=== PATIENT | female | born 1960 ===

== ENCOUNTER 2019-04-22 11:53 | Emergency (ER) | payer SELFPAY ==
[2019-04-22] MEDS ORDERED: Lidocaine 2% VISCOUS* 15 ML UDC PO ONE (13:01)
[2019-04-22] MEDS ORDERED: Al Hydrox/Mg Hydrox/Simet LIQ* 30 ML UDC PO ONE (13:02)
--- NOTE | 2019-04-22 13:22 | UC ---
Abdominal Pain Female HPI - HPI Summary HPI Summary: 59 year old female with PMH + for gallstones, H Pylori, dx'd this October, treated with 3 weeks medications. Does not believe she has ever had a BG attack, but not sure- GI dr at home stated it could have been in past. Visiting from [place]. Denies bloody/ tarry stools, coffee ground emesis. Patient states last night started to have stomach pains with several episodes of loose, putty like brown stools. Was unable to eat, drink anything. woke up in the middle of the night, vomited bile x 1, then again this morning after trying to drink water. Pain does not radiate. No fever, chills. otherwise feeling well. with patient, denies symptoms. + flatus, no abdominal cramping + history of appy as a teenager, hysterectomy for mass as adult. no urinary symptoms. no SOB. no chest pain - History of Current Complaint Chief Complaint: UCGI Stated Complaint: ABDOMINAL PAIN Time Seen by Provider: 04/22/19 12:47 Hx Obtained From: Patient, Family/Surveyor - ?: No Onset/Duration: Sudden Onset, Lasting Hours Timing: Constant Severity Initially: Moderate Severity Currently: Moderate Pain Intensity: 7 Pain Scale Used: 0-10 Numeric Location: Epigastric Radiates: No Character: Sharp Aggravating Factor(s): Food Alleviating Factor(s): Position - lying down Allergies/Adverse Reactions: Allergies Allergy/AdvReac Type Severity Reaction Status Date / Time No Known Allergies Allergy Verified 04/22/19 12:26 PMH/Surg Hx/FS Hx/Imm Hx Previously Healthy: Yes - does not take medications - Surgical History Surgical History: Yes Surgery Procedure, Year, and Place: hysterectomy. appendectomy. tonsillectomy - Family History Known Family History: Positive: Non-Contributory - Social History Alcohol Use: Occasionally Substance Use Type: None Smoking Status (MU): Never Smoked Tobacco Review of Systems All Other Systems Reviewed And Are Negative: Yes Constitutional: Positive: Negative. Negative: Fever, Chills, Fatigue Respiratory: Positive: Cough. Negative: Shortness Of Breath Gastrointestinal: Positive: Abdominal Pain, Vomiting, Diarrhea, Nausea Genitourinary: Negative: Dysuria, Hematuria, Frequency, Urgency, Vaginal/Penile Discharge Motor: Negative: Decreased ROM, Weakness Neurovascular: Negative: Decreased Sensation Musculoskeletal: Negative: Arthralgia Neurological: Negative: Headache, Weakness Psychological: Negative: Anxious Is Patient Immunocompromised?: No Physical Exam Triage Information Reviewed: Yes Appearance: Well-Appearing, No Pain Distress, Well-Nourished Vital Signs: Initial Vital Signs Temp 98.2 F 04/22/19 12:21 Pulse 88 04/22/19 12:21 Resp 16 04/22/19 12:21 BP 157/64 04/22/19 12:21 Pulse Ox 100 04/22/19 12:21 Vital Signs Reviewed: Yes Eyes: Positive: Conjunctiva Clear ENT: Positive: Hearing grossly normal Respiratory: Positive: Chest non-tender, Lungs clear, Normal breath sounds, No respiratory distress, No accessory muscle use. Negative: Respiratory distress, Crackles, Rhonchi, Stridor, Wheezing Cardiovascular: Positive: RRR, No Murmur. Negative: Pulses Normal Abdomen Description: Positive: No Organomegaly, Soft, Other: - + epigastric pain with moderate palpation, no TTP over liver, spleen, RLQ, GB. Mild TTP over LLQ, diffuse. NABSx 4, quiet.. Negative: CVA Tenderness (R), CVA Tenderness (L), Distended, Guarding, Hepatomegaly, McBurney's Point Tenderness, Splenomegaly Bowel Sounds: Positive: Present - normal Musculoskeletal Exam: Normal Musculoskeletal: Positive: Strength Intact Neurological Exam: Normal Neurological: Positive: Alert Psychological Exam: Normal Abd Pain Female Course/Dx - Course Course Of Treatment: Currently we do not have any imaging- discussed with patient treatment options. Patient was told that we could not make a definitive diagnosis due to limitations here, and recommended ER for further treatment. Patient was given a GI cocktail, which did help. She was trialled on water, which she tolerated well without any increase in pain. Patient D/Cd home with strict instructions that if worsening of pain, further vomiting, she needed to go to ER immediately. - Differential Dx/Diagnosis Differential Diagnosis: Pelvic Inflammatory Disease, Urinary Tract Infection Provider Diagnosis: Abdominal pain Discharge ED - Sign-Out/Discharge Documenting (check all that apply): Patient Departure All imaging exams completed and their final reports reviewed: No Studies - Discharge Plan Condition: Fair Disposition: HOME-RECOMMEND TO ED Prescriptions: Lidocaine 2% VISCOUS* [Xylocaine 2% Viscous*] 15 ml PO Q6H PRN #1 btl PRN Reason: stomach pain Ondansetron ODT TAB* [Zofran 4 MG Odt TAB*] 4 mg PO Q6H PRN #10 tab.odt PRN Reason: Nausea Patient Education Materials: Acute Abdominal Pain (ED) Referrals: No Primary Care Phys,NOPCP [Primary Care Provider] - Additional Instructions: - No formal diagnosis can be given due to no imaging at center. IF pain/ symptoms increase you should go immediately to ER for further evaluation. - Medications to help with nausea/ stomach pains - [place] diet - Increase fluids to prevent dehydration. Water is best currently. - FOr stomach pains- Mix Mylanta ( over the counter medication, hand picker at pharmacy) with viscous lidocaine as needed every 6 hours - Zofran for nausea as prescribed. - Begin over the counter GERD medication, such as Omeprazole, Nexium as directed per packet instructions - Follow up with GI doctor this week. - Billing Disposition and Condition Condition: FAIR Disposition: Home-Recommend to ED
== END 2019-04-22 13:54 | disposition home health service (06) ==
LOC: UCEAST 11:53
DX: R10.9 Unspecified abdominal pain (principal); R05 Cough
CPT/HCPCS: 99202; A9270-GY; G0463